=== PATIENT | male | born 1980 | race Caucasian/White ===

== ENCOUNTER 2020-06-08 00:51 | Emergency (ER) | payer SELFPAY ==
[2020-06-08] MEDS ORDERED: HYDROcodone 5MG/APAP 325MG 1 EA TAB PO ONE (01:46)
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
[2020-06-08] MEDS ORDERED: TETANUS,DIPHTHERIA,PERTUSSIS 1 EA SYG IM ONE (02:24)
[2020-06-08] MEDS ORDERED: SULFA/TRIMETH 800/160 (DS) TAB 1 EA TAB PO ONE (02:25)
[2020-06-08 02:55] VITALS: O2SAT 100
[2020-06-08 03:42] VITALS: BP 120/73; TEMP 97.1
== END 2020-06-08 03:42 | disposition home or self-care (01) ==
LOC: ER 00:51
DX: S06.0X1A Concussion with loss of consciousness of 30 minutes or less, initial encounter (principal); S01.01XA Laceration without foreign body of scalp, initial encounter; M54.2 Cervicalgia; S80.811A Abrasion, right lower leg, initial encounter; Y00.XXXA Assault by blunt object, initial encounter; Y92.9 Unspecified place or not applicable